=== PATIENT | male | born 1965 | race African-American/Black ===

== ENCOUNTER 2020-11-07 19:18 | Emergency (ER) | payer OTHER, SELFPAY ==
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
[2020-11-07 19:28] VITALS: BP 149/80; PULSE 86; RESP 16; TEMP 36.7; O2SAT 99; BMI 27.3
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
== END 2020-11-07 22:21 | disposition home or self-care (01) ==
PROVIDERS: Emergency Provider Emergency Medicine
DX: S20.219A Contusion of unspecified front wall of thorax, initial encounter (principal); S29.012A Strain of muscle and tendon of back wall of thorax, initial encounter; V59.40XA Driver of pick-up truck or van injured in collision with unspecified motor vehicles in traffic accident, initial encounter; Y93.9 Activity, unspecified; Y92.410 Unspecified street and highway as the place of occurrence of the external cause; Y99.9 Unspecified external cause status
CPT/HCPCS: 71046; 99283; 99284

== ENCOUNTER 2021-09-09 08:56 | Emergency (ER) | payer OTHER, SELFPAY ==
--- NOTE | ~2021-09-09 | XR_ITS ---
EXAMINATION: XR KNEE, LEFT CLINICAL INFORMATION: Pain COMPARISON: None TECHNIQUE: Four views of the left knee. FINDINGS: Bone alignment is normal. No fracture or dislocation is seen. The femoral tibial joints are normal. There are small osteophytes at the patellofemoral joint. There is no joint effusion. XR/XR knee LT 4V IMPRESSION: Small osteophytes at the patellofemoral joint.
[2021-09-09 08:59] VITALS: BP 151/77; PULSE 104; RESP 18; TEMP 35.9; O2SAT 99; BMI 27.3
[2021-09-09 09:55] LABS: Glucose, Whole Blood 287 mg/dL (60-115)
[2021-09-09 10:15] LABS: MANUAL DIFF FLAG NO
[2021-09-09 10:17] LABS: Basophils Percent Auto 0.6 % (0-2); Eosinophils Absolute Auto 0.1 X10*3/uL (0.0-0.4); Eosinophils Percent Auto 2.2 % (0-4); Hematocrit 42.4 % (42.0-52.0); Hemoglobin 14.9 g/dl (14.0-18.0); Imm Gran Abs Auto 0.04 X10*3/uL (0.00-0.03); Imm Gran Pct Auto 0.7 % (0.0-0.4); Lymphocytes Absolute Auto 1.7 X10*3/uL (1.2-4.9); Mean Corpuscular HGB Conc 35.1 g/dl (31.0-36.0); Mean Corpuscular Hemoglobin 29.1 pg (27.0-33.0); Mean Corpuscular Volume 82.8 fL (80.0-98.0); Monocytes Absolute Auto 0.4 X10*3/uL (0.1-1.2); Monocytes Percent Auto 7.2 % (2-11); Neutrophils Absolute Auto 3.1 x10*3/uL (2.0-8.3); Neutrophils Percent Auto 58.3 % (45-73); Platelet Count 209 X10*3/uL (160-400); Red Blood Count 5.12 X10*6/uL (4.60-5.80); Red Cell Distribution Width 12.9 % (11.0-16.0); White Blood Count 5.4 X10*3/uL (4.8-10.8)
[2021-09-09 10:26] LABS: Acetone, serum QL Negative (Negative)
[2021-09-09 10:30] LABS: Estimated Average Glucose 166 mg/dL; Hemoglobin A1c % 7.4 %
--- NOTE | 2021-09-09 10:34 | ED.EXTPRO ---
HPI - Extremity Problem General Chief complaint: Extremity Injury, Lower Stated complaint: leg discomfort Time Seen by Provider: 09/09/21 09:08 Source: patient and family Mode of arrival: ambulatory Limitations: no limitations History of Present Illness HPI Narrative: 56-year-old male with no significant past medical history who reports he was seen by a doctor 2 years ago and told that he had high blood sugar otherwise he does not recall any other medical history as he has not seen a primary care provider in a few years presenting to the ED with his at bedside with complaints of atraumatic left knee pain for the past 2 years. Denies any recent falls or injuries. Denies any dizziness, headaches, neck pain/stiffness, trouble swallowing or breathing, chest pain or shortness of breath, dyspnea on exertion, orthopnea, palpitations, paresthesias, nausea/vomiting/diarrhea or constipation, black or bloody stools, dysuria, hematuria, urinary urgency/frequency, rashes, recent travel or sick contacts, recent immobilization, lower extremity edema or calf tenderness or any other symptoms complaints or concerns at this time. MD Complaint: joint pain Onset (ago): year(s) (2) Pain Consistency: constant Location: left and knee Quality: aching and constant Radiation: none Relieving factors: nothing Exacerbating factors: range of motion, weight bearing, walking and palpation Associated symptoms: denies other symptoms Related Data Previous Rx's Medication Instructions Recorded cyclobenzaprine 5 mg tablet 5 mg PO BEDTIME PRN 14 Days tab 11/07/20 ibuprofen 800 mg tablet 800 mg PO Q8H PRN #30 tab 11/07/20 lidocaine 4 % topical patch 1 patch TOPICAL Q24H PRN #15 ea 11/07/20 alcohol swabs (Alcohol Pads) 1 pad TOPICAL BID-QID PRN #200 ea 09/09/21 blood sugar diagnostic (FreeStyle #100 ea 09/09/21 Lite Strips) blood-glucose meter (FreeStyle #1 ea 09/09/21 [place] Lite) lancets 28 gauge (FreeStyle #100 ea 09/09/21 Lancets) metformin 500 mg tablet 500 mg PO BIDWMEAL #60 tab 09/09/21 Allergies Allergy/AdvReac Type Severity Reaction Status Date / Time No Known Allergies Allergy Verified 09/09/21 08:59 [No Known Allergies*] Review of Systems Review of Systems: Constitutional : No Weight loss, No Fever, No Chills, No Night Sweats, No Fatigue, No Malaise ENT/Mouth : No Hearing loss, No Ear Pain, No Nasal Congestion, No Sinus Pain, No Hoarseness, No sore throat, No Rhinorrhea, No Swallowing Difficulty Eyes: No Eye Pain, No Swelling, No Redness, No Foreign Body, No Discharge, No Vision Changes Cardiovascular : No Chest Pain, No SOB, No Dyspnea on Exertion, No Orthopnea, No Edema, No Palpitations Respiratory : No Cough, No Sputum, No Wheezing, No Smoke Exposure, No Dyspnea Gastrointestinal : No Nausea, No Vomiting, No Diarrhea, No Constipation, No abdominal Pain, No Hematochezia, No Melena Genitourinary : no irregular bleeding, No Dysuria, No Urinary Frequency, No Hematuria, No Urinary Incontinence, No Urgency, No Flank Pain, No Urinary Flow Changes, No Hesitancy Musculoskeletal : + joint pain, No Myalgias, No Joint Swelling Skin : No Skin Lesions, No rash Neuro : No Weakness, No Numbness, No Paresthesias, No Loss of Consciousness, No Dizziness, No Headache Psych : No Anxiety/Panic, No Depression, No SI/HI/AH/VH, No Social Issues, Heme/Lymph: No Bruising, No Bleeding,No Lymphadenopathy Endocrine : No Polyuria, No Polydipsia, No Temperature Intolerance Yes all other systems are reviewed and are negative [facility] Past Medical History Attestation statement: The following information was validated with the patient. Medical History No known health problems Social History Social History Advance Directives: No Advance Directives Information Provided: No Physical Exam Vital Signs: Vital Signs: Last Vital Signs Temp 96.6 F L 09/09/21 08:59 Pulse 104 H 09/09/21 08:59 Resp 18 09/09/21 08:59 BP 151/77 H 09/09/21 08:59 Pulse Ox 99 09/09/21 08:59 BMI result Body Mass Index 27.3 vital signs have been reviewed as normal and appeared to be correct. Blood pressure 151/77 Heart rate 104. Respiration rate normal. Temperature normal. Oxygen saturation normal. Appearance: Alert. Oriented X3. No acute distress. Head: Normal external exam. Normocephalic. Atraumatic. Eyes: PERRLA. EOMI. Conjunctiva and sclera normal. Eyelids normal. ENT: Pharynx normal. Uvula midline. Moist mucous membranes. Neck: Normal inspection. Neck supple. FROM. CVS: Normal heart rate and rhythm. Respiratory: No respiratory distress. Painless inspiration. Skin: Skin warm and dry. Normal skin color. Normal skin turgor. No rashes/lesions/lacerations noted. Extremities: Patient with tenderness palpation to the anterior lateral aspect of the left knee he has full range of motion no obvious ligamentous or tendon injury noted. No obvious soft tissue swelling noted. No signs of infection. Not consistent with septic joint. No lower extremity edema or calf tenderness noted. Otherwise all other extremities exhibit normal range of motion nontender. Neuro: Oriented X 3. No motor deficit. No sensory deficit. Reflexes normal. Normal steady gait. No focal neuro deficits noted. Vascular: + radial pulses/+ 2 distal pedal pulses/+2 dorsalis pedis b/l. Normal cap refill. No cyanosis noted to upper extremity nails and lower extremity toes nails. Course Course Course Narrative: 56-year-old male with no significant past medical history who reports he was seen by a doctor 2 years ago and told that he had high blood sugar otherwise he does not recall any other medical history as he has not seen a primary care provider in a few years presenting to the ED with his at bedside with complaints of atraumatic left knee pain for the past 2 years. Denies any recent falls or injuries. Denies any dizziness, headaches, neck pain/stiffness, trouble swallowing or breathing, chest pain or shortness of breath, dyspnea on exertion, orthopnea, palpitations, paresthesias, nausea/vomiting/diarrhea or constipation, black or bloody stools, dysuria, hematuria, urinary urgency/frequency, rashes, recent travel or sick contacts, recent immobilization, lower extremity edema or calf tenderness or any other symptoms complaints or concerns at this time. X-ray of left knee negative for any acute processes only revealed chronic changes such/osteophytes. He does not have any lower extremity edema or calf tenderness therefore not consistent with DVT therefore no ultrasound indicated at this time. We did do labs due to patient reporting he had high blood sugar 2 years ago and has not seen a doctor in years. His POC was 287. Therefore we got labs CBC is within normal limits. BUN 22. Random glucose 367. Negative acetone level. Although we did do an A1c level which is 7.4. Otherwise all other labs are within normal limits. Therefore patient is a new diagnosis diabetic I discussed this case with with Dr. Hinton and she is agreeable to my plan will teach patient had a check his blood sugar and DC home with metformin 500 mg b.i.d. it and I explained to him that he needs to call primary care provider starting today I gave him a few numbers along with endocrinology and to return if any new or worsening symptoms and to discuss to them about possible high blood pressure as well this is the 1st reading that we have had that is high therefore I will not start him on high blood pressure medications due to this is the 1st reading we have that is high. Patient understands agrees with this plan. MDM - Extremity (Nontraumatic) Medical Records Attestation: I reviewed the patient's medical records. Lab Data Attestation: I reviewed the patient's lab results. Result diagrams: 09/09/21 10:11 09/09/21 10:11 Labs: Lab Results 09/09/21 09/09/21 09/09/21 Range/Units 09:51 10:11 10:11 WBC 5.4 (4.8-10.8) X10*3/uL RBC 5.12 (4.60-5.80) X10*6/uL Hgb 14.9 (14.0-18.0) g/dl Hct 42.4 (42.0-52.0) % MCV 82.8 (80.0-98.0) fL MCH 29.1 (27.0-33.0) pg MCHC 35.1 (31.0-36.0) g/dl RDW 12.9 (11.0-16.0) % Plt Count 209 (160-400) X10*3/uL MPV 10.0 (9.4-12.4) fL Immature Gran % (Auto) 0.7 H (0.0-0.4) % Neut % (Auto) 58.3 (45-73) % Lymph % (Auto) 31.0 (20-40) % Stark % (Auto) 7.2 (2-11) % Eos % (Auto) 2.2 (0-4) % Baso % (Auto) 0.6 (0-2) % Lymph # (Auto) 1.7 (1.2-4.9) X10*3/uL Stark # (Auto) 0.4 (0.1-1.2) X10*3/uL Eos # (Auto) 0.1 (0.0-0.4) X10*3/uL Baso # (Auto) 0.0 (0.0-0.2) X10*3/uL Abs Immat Gran (auto) 0.04 H (0.00-0.03) X10*3/uL Absolute Neuts (auto) 3.1 (2.0-8.3) x10*3/uL Absolute Nucleated RBC 0.000 (0.0-0.012) X10*3/uL Nucleated RBC % (auto) 0.0 (0.0-0.2) /100WBC Sodium 137 (135-145) mmol/L Potassium 4.5 (3.3-5.1) mmol/L Chloride 104 (96-108) mmol/L Carbon Dioxide 25 (22-29) mmol/L Anion Gap 13 (12-20) BUN 22 H (9-16) mg/dL Creatinine 1.08 (0.5-1.4) mg/dL Estim Creat Clear Calc 70.2 Estimated GFR > 60 POC Glucose 287 H (60-115) mg/dL Random Glucose 367 H* (60-115) mg/dL Estimat Average Glucose mg/dL Hemoglobin A1c % % Calcium 9.4 (8.4-10.2) mg/dL Total Bilirubin 0.6 (0.0-1.0) mg/dL AST 15 (5-37) U/L ALT 15 (0-40) U/L Alkaline Phosphatase 93 (39-117) U/L Total Protein 6.9 (6.5-8.0) g/dL Albumin 4.1 (3.5-5.0) g/dL Acetone, Qual (Negative) 09/09/21 09/09/21 Range/Units 10:11 10:11 WBC (4.8-10.8) X10*3/uL RBC (4.60-5.80) X10*6/uL Hgb (14.0-18.0) g/dl Hct (42.0-52.0) % MCV (80.0-98.0) fL MCH (27.0-33.0) pg MCHC (31.0-36.0) g/dl RDW (11.0-16.0) % Plt Count (160-400) X10*3/uL MPV (9.4-12.4) fL Immature Gran % (Auto) (0.0-0.4) % Neut % (Auto) (45-73) % Lymph % (Auto) (20-40) % Stark % (Auto) (2-11) % Eos % (Auto) (0-4) % Baso % (Auto) (0-2) % Lymph # (Auto) (1.2-4.9) X10*3/uL Stark # (Auto) (0.1-1.2) X10*3/uL Eos # (Auto) (0.0-0.4) X10*3/uL Baso # (Auto) (0.0-0.2) X10*3/uL Abs Immat Gran (auto) (0.00-0.03) X10*3/uL Absolute Neuts (auto) (2.0-8.3) x10*3/uL Absolute Nucleated RBC (0.0-0.012) X10*3/uL Nucleated RBC % (auto) (0.0-0.2) /100WBC Sodium (135-145) mmol/L Potassium (3.3-5.1) mmol/L Chloride (96-108) mmol/L Carbon Dioxide (22-29) mmol/L Anion Gap (12-20) BUN (9-16) mg/dL Creatinine (0.5-1.4) mg/dL Estim Creat Clear Calc Estimated GFR POC Glucose (60-115) mg/dL Random Glucose (60-115) mg/dL Estimat Average Glucose 166 mg/dL Hemoglobin A1c % 7.4 % Calcium (8.4-10.2) mg/dL Total Bilirubin (0.0-1.0) mg/dL AST (5-37) U/L ALT (0-40) U/L Alkaline Phosphatase (39-117) U/L Total Protein (6.5-8.0) g/dL Albumin (3.5-5.0) g/dL Acetone, Qual Negative (Negative) Critical Care Time Critical Care Time Critical Care Time: Yes Total Critical Care Time: 60 Attestation: I personally attest to this time spent taking care of the patient Discharge Plan Discharge Clinical Impression: Arthritis of left knee, Newly diagnosed diabetes, High blood pressure Patient Disposition: Home, Self-Care Instructions: Heart Healthy Diet (DC), Osteoarthritis (DC), How to Take a Blood Pressure (ED), Type 2 Diabetes in Adults: New Diagnosis (ED), Hypertension and Diabetes (ED), Diabetes and Nutrition (ED), How to Check your Blood Sugar (ED) Additional Instructions: You need to start calling for a new primary care provider as soon as possible along with the office support assistant to take care of her diabetes. You also need to start checking her blood sugar at least twice a day before meals. Take your metformin for diabetes twice a day. Also start checking her blood pressure at least 3 times a week in the morning and write it down on a piece of paper so when you follow-up with a primary care provider you have evidence that you do have high blood pressure. Return if any new or worsening symptoms. Prescriptions: New metformin 500 mg tablet 500 mg PO BIDWMEAL Qty: 60 1RF (DME) blood-glucose meter [FreeStyle [place] Lite] Kit See Rx Instructions .Route Qty: 1 0RF Rx Instructions: As directed (DME) FreeStyle Lite Strips Strip See Rx Instructions .Route Qty: 100 0RF Rx Instructions: As directed alcohol swabs [Alcohol Pads] Pads, Medicated 1 pad topical BID-QID PRN (Reason: New onset diabetes to check blood sugar) Qty: 200 0RF (DME) lancets [FreeStyle Lancets] 28 gauge misc See Rx Instructions .Route Qty: 100 0RF Rx Instructions: As directed No Action lidocaine 4 % adhesive patch,medicated 1 patch topical Q24H PRN (Reason: pain) Qty: 15 0RF Rx Instructions: may leave on for up to 12 hrs ibuprofen 800 mg tablet 800 mg PO Q8H PRN (Reason: pain) Qty: 30 0RF cyclobenzaprine 5 mg tablet 5 mg PO BEDTIME PRN (Reason: muscle spasm) 14 Days 0RF Referrals: [facility] [Provider Group] [facility] [Provider Group] [facility] [place] [facility] Group] [facility] [place] [facility] [place] Group] Allison uGnderson MD [Physician] - Print Language: Maltese
[2021-09-09 10:37] LABS: Alanine Aminotransferase 15 U/L (0-40); Albumin Level 4.1 g/dL (3.5-5.0); Alkaline Phosphatase 93 U/L (39-117); Anion Gap 13 (12-20); Aspartate Amino Transferase 15 U/L (5-37); Bilirubin Total 0.6 mg/dL (0.0-1.0); Blood Urea Nitrogen 22 mg/dL (9-16); Calcium 9.4 mg/dL (8.4-10.2); Carbon Dioxide 25 mmol/L (22-29); Chloride 104 mmol/L (96-108); Creatinine Clr Calc Pharmacy 70.2; Estimated Glomerular Filt Rate > 60; Glucose Random 367 mg/dL (60-115); Potassium 4.5 mmol/L (3.3-5.1); Sodium 137 mmol/L (135-145); Total Protein 6.9 g/dL (6.5-8.0)
--- NOTE | 2021-09-09 11:40 | MHC.CM.ED ---
Received case management consult from Felisha MARLEY. Patient came to ER due to leg discomfort. Patient found to be new diabetic. Patient doesn't have a PCP. Met with patient and . Patient has [facility] Direct and has been having difficulty finding a PCP. T/W informed patient and that Dr Baig's office is only provider in the area that accepts patient's insurance. Patient was told to call insurance company to change PCP to Dr Baig today. And then call Dr Baig's office tomorrow to arrange a new patient appointment. Patient and verbalize understanding. Felisha MARLEY aware. Continue to monitor for d/c needs.
[2021-09-09] MEDS: metFORMIN HCl 500 MG TABLET PO (11:47)
== END 2021-09-09 12:15 | disposition home or self-care (01) ==
PROVIDERS: Physician Assistant Medical; Emergency Provider Emergency Medicine
DX: M17.12 Unilateral primary osteoarthritis, left knee (principal); M79.605 Pain in left leg; E11.65 Type 2 diabetes mellitus with hyperglycemia; R03.0 Elevated blood-pressure reading, without diagnosis of hypertension
CPT/HCPCS: 36415; 73564; 80053; 82009; 82947; 83036; 85025; 99283

== ENCOUNTER 2022-05-31 08:05 | Emergency (ER) | payer MEDICAID, SELFPAY ==
--- NOTE | ~2022-05-31 | XR_ITS ---
EXAMINATION: XR LUMBOSACRAL SPINE CLINICAL INFORMATION: Back pain COMPARISON: None TECHNIQUE: Three views of the lumbosacral spine. FINDINGS: No acute findings. No fracture or subluxation of the degenerated spine. The vertebral body heights and alignment are maintained. The disc spaces are generally well-preserved. There is multilevel osteophyte formation of the visualized lower thoracic and lumbar spine. No focal lytic or osteoblastic lesion. Sacrum and sacroiliac joints are intact. XR/XR lumbar spine 2-3V IMPRESSION: 1. No fracture or malalignment. 2. Mild degeneration/spondylosis of the visualized lower thoracic and lumbar spine.
--- NOTE | ~2022-05-31 | US_ITS ---
EXAMINATION: US RETROPERITONEAL LIMITED (AORTA) CLINICAL INFORMATION: Low back pain. Evaluate for abdominal aorta aneurysm.. COMPARISON: None TECHNIQUE: Bond-scale, color Doppler and spectral Doppler evaluation of the abdominal aorta. FINDINGS: Abdominal aorta is normal in size. Peak systolic velocity measured in the distal aorta is 90 cm/sec. The measurements of the aorta in maximum AP and transverse dimensions respectively are as follows: Proximal: 2.2 x 1.6 cm. Mid: 1.8 x 1.5 cm. Distal: 1.4 x 1.7 cm. The common iliac arteries are normal in size. The right common iliac is 0.9 cm and left common iliac 0.8 cm. US/US abdominal aortic aneurysm IMPRESSION: Normal exam. No evidence of abdominal aorta aneurysm.
[2022-05-31 08:06] VITALS: BP 148/81; PULSE 98; RESP 18; TEMP 36.4; O2SAT 97; BMI 27.3
--- NOTE | 2022-05-31 08:51 | ED.GENADULT ---
HPI - General Adult General Chief complaint: General Medical Stated complaint: fall low back pain Time Seen by Provider: 05/31/22 08:41 Source: patient and family Mode of arrival: ambulatory Limitations: no limitations History of Present Illness HPI narrative: 57-year-old male came in for evaluation of low back pain that started about 30 days ago patient states he was sleeping in a cold room and window was broken cold air was hitting his low back area. Pain is affecting mostly the whole back mostly on the right side pain was worse with movement specifically bending up and down. Patient declined any abdominal or epigastric pain, no fall or trauma to the back. Patient was diagnosed with diabetes was prescribed a medication from the ED patient is unable to get to a primary physician because the insurance. Related Data Home Medications Medication Instructions Recorded Confirmed No Known Home Meds 05/31/22 05/31/22 Allergies Allergy/AdvReac Type Severity Reaction Status Date / Time No Known Allergies Allergy Verified 09/09/21 08:59 [No Known Allergies*] Review of Systems Review of Systems: All other systems are reviewed and are negative Constitutional: Reports as per HPI and Reports no additional constitutional complaints Eyes: Reports as per HPI and Reports no additional eye complaints Reports system reviewed and no additional complaints, except as documented Cardiovascular: Reports as per HPI and Reports no additional cardiovascular complaints Respiratory: Reports as per HPI and Reports no additional respiratory complaints Gastrointestinal: Reports as per HPI and Reports no additional gastrointestinal complaints Genitourinary: Reports no additional female genitourinary complaints Musculoskeletal: Reports no additional musculoskeletal complaints Skin/Breast: Reports system reviewed and no additional complaints, except as docu Psychiatric: Reports no additional psychiatric complaints Endocrine: Reports no additional endocrine complaints Hematologic/Lymphatic: Reports no additional hematologic/lymphatic complaints Allergic/Immunologic: Reports no additional allergic/immunologic complaints Reports system reviewed and no additional complaints, except as documented and Reports Abnormal speech present [facility] Past Medical History Medical History (Updated 05/31/22 @ 14:55 by Elza Claudio MD) Diabetes Social History Social History Alcohol intake: current Alcohol intake frequency: holidays/special occasions only Alcohol type: beer Smoked in Last 30 Days: No Use of substances other than those prescribed or required for medical reasons: No Advance Directives: No Physical Exam ED Vital Signs: Vital Signs - 24 hr 05/31/22 08:06 05/31/22 09:11 05/31/22 12:36 Temperature 97.6 F 97.7 F 97.7 F Pulse Rate 98 94 80 Respiratory Rate 18 18 18 Blood Pressure 148/81 H 145/82 H 136/82 Pulse Oximetry 97 97 100 Oxygen Delivery Method Room Air Room Air Room Air BMI result Body Mass Index 27.3 Vital signs have been reviewed as appeared to be correct. Blood pressure normal. Heart rate normal. Respiration rate normal. Temperature normal. Oxygen saturation normal. Appearance: Alert. Oriented X3. No acute distress. Head: Normal external exam. Normocephalic. Atraumatic. No Barahona signs noted. No raccoon eyes noted Eyes: PERRLA. EOMI. Conjunctiva and sclera normal. Eyelids normal. ENT: TM's Normal. Pharynx normal. Uvula midline. Moist mucous membranes. No trismus noted. No drooling noted. No muffled voice noted. Neck: Normal inspection. Neck supple. FROM. No adenopathy. Thyroid Normal. No meningeal signs. No neck mass noted. CVS: Normal heart rate and rhythm. Heart sound normal. No murmurs noted. Pulses normal throughout. Respiratory: No respiratory distress. Painless inspiration. Breath sounds normal. No wheezes/rales/rhonchi noted. Chest nontender. No accessory muscle usage noted or decreased air movement noted. Abdomen: Soft and nontender. Bowel sounds normal in all 4 quadrants. No distention noted. No organomegaly noted. No visible injury noted. Back: No CVA tenderness. Full range of motion noted. Skin: Skin warm and dry. Normal skin color. Normal skin turgor. No rashes/lesions/lacerations noted. Extremities: No lower extremity edema. Extremities exhibit normal range of motion. Extremities nontender. Neuro: Oriented X 3. Cranial nerve exam: II-XII are grossly intact No motor deficit. No sensory deficit. Reflexes normal. Course Course Course Narrative: 57-year-old male diagnosed with diabetes patient is not compliant with his medication that was prescribed in the emergency department, patient is unable to find PCP because the type of insurance that the patient has, patient needed an education and teaching about how to manage diabetes [employer] grade social [employer] teacher consultation was ordered to help the patient to find a PCP and possibly VNA. Patient was given insulin to control his hyperglycemia the patient started to become hypoglycemic had palpitation and his blood sugar then was 49 patient was awake enough to take p.o. intake blood sugar went up to 123, still waiting to arrange for VNA. Reevaluation(s) Reevaluation #1: Patient is awake, alert, oriented x3 patient is angry that he has been waiting for long time in the emergency department waiting for [employer] grade social studies teacher and VNA patient took out his IV and walking out of the emergency department patient refused to have further conversation with me trying to educate him about diabetes and the reason of waiting in the emergency department patient walked out of the emergency department. Time: 14:50 Medications Administered Discontinued Medications Generic Name Dose Route Start Last Admin Trade Name Freq PRN Reason Stop Dose Admin Glyburide 5 mg 05/31/22 13:18 05/31/22 14:18 Glyburide 5 Mg Tablet PO 05/31/22 13:19 Not Given ONCE ONE Sodium Chloride 1,000 mls @ 999 mls/hr 05/31/22 10:05 05/31/22 14:00 Ns IV 05/31/22 11:05 Infused .Q1H1M ONE Infusion Ibuprofen 600 mg 05/31/22 08:49 05/31/22 09:07 Ibuprofen 600 Mg Tablet PO 05/31/22 08:50 600 mg ONCE ONE Administration Insulin Human Regular 10 unit 05/31/22 10:05 05/31/22 10:55 Insulin Regular, Human 100 Unit/Ml 3 Ml Vial IVPUSH 05/31/22 10:06 10 unit ONCE ONE Administration Metformin HCl 500 mg 05/31/22 13:18 05/31/22 14:18 Metformin Hcl 500 Mg Tablet PO 05/31/22 13:19 Not Given ONCE ONE Medical Decision Making Differential Diagnosis Differential Diagnoses: The differential diagnosis associated with the presentation includes (Uncontrolled diabetes, back pain, UTI, kidney stone.) Lab Data MDM Lab Attestation statement: I reviewed the patient's lab results. 05/31/22 09:04 05/31/22 09:04 Labs: Lab Results 05/31/22 05/31/22 05/31/22 Range/Units 09:04 09:04 11:59 WBC 3.9 L (4.8-10.8) X10*3/uL RBC 4.99 (4.60-5.80) X10*6/uL Hgb 14.4 (14.0-18.0) g/dl Hct 41.7 L (42.0-52.0) % MCV 83.6 (80.0-98.0) fL MCH 28.9 (27.0-33.0) pg MCHC 34.5 (31.0-36.0) g/dl RDW 12.4 (11.0-16.0) % Plt Count 186 (160-400) X10*3/uL MPV 10.2 (9.4-12.4) fL Immature Gran % (Auto) 1.0 H (0.0-0.4) % Neut % (Auto) 58.0 (45-73) % Lymph % (Auto) 30.8 (20-40) % Starr % (Auto) 7.4 (2-11) % Eos % (Auto) 2.0 (0-4) % Baso % (Auto) 0.8 (0-2) % Lymph # (Auto) 1.2 (1.2-4.9) X10*3/uL Starr # (Auto) 0.3 (0.1-1.2) X10*3/uL Eos # (Auto) 0.1 (0.0-0.4) X10*3/uL Baso # (Auto) 0.0 (0.0-0.2) X10*3/uL Abs Immat Gran (auto) 0.04 H (0.00-0.03) X10*3/uL Absolute Neuts (auto) 2.3 (2.0-8.3) x10*3/uL Absolute Nucleated RBC 0.000 (0.0-0.012) X10*3/uL Nucleated RBC % (auto) 0.0 (0.0-0.2) /100WBC Sodium 137 (135-145) mmol/L Potassium 4.0 (3.3-5.1) mmol/L Chloride 104 (96-108) mmol/L Carbon Dioxide 24 (22-29) mmol/L Anion Gap 13 (12-20) BUN 18 H (9-16) mg/dL Creatinine 1.06 (0.5-1.4) mg/dL Estim Creat Clear Calc 70.7 Estimated GFR > 60 POC Glucose (60-115) mg/dL Random Glucose 428 H* (60-115) mg/dL Calcium 9.0 (8.4-10.2) mg/dL Urine Color Yellow Urine Appearance Clear Urine pH 5.5 (5.0-9.0) Ur Specific [place] >= 1.030 H (1.005-1.025) Urine Protein Negative (Neg-Trace) mg/dL Urine Glucose (UA) >=1000 H (Negative) mg/dL Urine Ketones Trace (Negative) mg/dL Urine Blood Negative (Negative) Urine Nitrite Negative (Negative) Ur Leukocyte Esterase Negative (Negative) Urine RBC 0-2 (0-2) /HPF Urine WBC 0-5 (0-5) /HPF Ur Squamous Epith Cells 0-2 (0-2) /HPF Urine Bacteria None Seen (None Seen) Hyaline Casts 0-2 (0-2) /LPF 05/31/22 05/31/22 05/31/22 Range/Units 12:01 13:24 13:58 WBC (4.8-10.8) X10*3/uL RBC (4.60-5.80) X10*6/uL Hgb (14.0-18.0) g/dl Hct (42.0-52.0) % MCV (80.0-98.0) fL MCH (27.0-33.0) pg MCHC (31.0-36.0) g/dl RDW (11.0-16.0) % Plt Count (160-400) X10*3/uL MPV (9.4-12.4) fL Immature Gran % (Auto) (0.0-0.4) % Neut % (Auto) (45-73) % Lymph % (Auto) (20-40) % Starr % (Auto) (2-11) % Eos % (Auto) (0-4) % Baso % (Auto) (0-2) % Lymph # (Auto) (1.2-4.9) X10*3/uL Starr # (Auto) (0.1-1.2) X10*3/uL Eos # (Auto) (0.0-0.4) X10*3/uL Baso # (Auto) (0.0-0.2) X10*3/uL Abs Immat Gran (auto) (0.00-0.03) X10*3/uL Absolute Neuts (auto) (2.0-8.3) x10*3/uL Absolute Nucleated RBC (0.0-0.012) X10*3/uL Nucleated RBC % (auto) (0.0-0.2) /100WBC Sodium (135-145) mmol/L Potassium (3.3-5.1) mmol/L Chloride (96-108) mmol/L Carbon Dioxide (22-29) mmol/L Anion Gap (12-20) BUN (9-16) mg/dL Creatinine (0.5-1.4) mg/dL Estim Creat Clear Calc Estimated GFR POC Glucose 205 H 49 L* 123 H (60-115) mg/dL Random Glucose (60-115) mg/dL Calcium (8.4-10.2) mg/dL Urine Color Urine Appearance Urine pH (5.0-9.0) Ur Specific [place] (1.005-1.025) Urine Protein (Neg-Trace) mg/dL Urine Glucose (UA) (Negative) mg/dL Urine Ketones (Negative) mg/dL Urine Blood (Negative) Urine Nitrite (Negative) Ur Leukocyte Esterase (Negative) Urine RBC (0-2) /HPF Urine WBC (0-5) /HPF Ur Squamous Epith Cells (0-2) /HPF Urine Bacteria (None Seen) Hyaline Casts (0-2) /LPF Independent Interpretation I performed an independent interpretation of an: Plain X-Ray (Lumbar spine: No acute fracture or malalignment.) and Ultrasound (Of the abdomen: No AAA.) Radiology Impression Discussion of test interpretation with radiology: I have reviewed the radiologist's reading. Tests considered The following testing was considered but not selected: Take the patient until seen by [employer] grade social studies teacher and arrange for VNA and also receive educational instruction about diabetes management. Patient did not want to wait and eloped before complete evaluation. Discharge Plan Discharge Clinical Impression: Hyperglycemia, Back pain Patient Disposition: Elopement Prescriptions: No Action No Known Home Meds
[2022-05-31 09:07] LABS: MANUAL DIFF FLAG NO
[2022-05-31] MEDS: Ibuprofen 600 MG TABLET PO (09:07)
[2022-05-31 09:11] VITALS: BP 145/82; PULSE 94; RESP 18; TEMP 36.5; O2SAT 97
[2022-05-31 09:23] LABS: Basophils Percent Auto 0.8 % (0-2); Eosinophils Absolute Auto 0.1 X10*3/uL (0.0-0.4); Hematocrit 41.7 % (42.0-52.0); Hemoglobin 14.4 g/dl (14.0-18.0); Imm Gran Abs Auto 0.04 X10*3/uL (0.00-0.03); Lymphocytes Absolute Auto 1.2 X10*3/uL (1.2-4.9); Lymphocytes Percent Auto 30.8 % (20-40); Mean Corpuscular HGB Conc 34.5 g/dl (31.0-36.0); Mean Corpuscular Hemoglobin 28.9 pg (27.0-33.0); Mean Corpuscular Volume 83.6 fL (80.0-98.0); Mean Platelet Volume 10.2 fL (9.4-12.4); Monocytes Absolute Auto 0.3 X10*3/uL (0.1-1.2); Monocytes Percent Auto 7.4 % (2-11); Neutrophils Absolute Auto 2.3 x10*3/uL (2.0-8.3); Platelet Count 186 X10*3/uL (160-400); Red Blood Count 4.99 X10*6/uL (4.60-5.80); Red Cell Distribution Width 12.4 % (11.0-16.0); White Blood Count 3.9 X10*3/uL (4.8-10.8)
[2022-05-31 09:31] LABS: Anion Gap 13 (12-20); Blood Urea Nitrogen 18 mg/dL (9-16); Carbon Dioxide 24 mmol/L (22-29); Chloride 104 mmol/L (96-108); Creatinine Clr Calc Pharmacy 70.7; Estimated Glomerular Filt Rate > 60; Glucose Random 428 mg/dL (60-115); Sodium 137 mmol/L (135-145)
--- NOTE | 2022-05-31 09:40 | PC.NURSE ---
CRITICAL GLUCOSE 428. PRIMARY RN AWARE, DR. CAMPOS AWARE.
[2022-05-31] MEDS: 0.9 % Sodium Chloride 1,000 ML 999 ML IV (10:55)
[2022-05-31] MEDS: Insulin Regular, Human 100 UNIT/ML 3 ML VIAL 10 UNIT IVPUSH (10:55)
--- NOTE | 2022-05-31 10:57 | PC.NURSE ---
patient a&ox3, iv inserted, pt ivf started per order, insulin given per order, call [place] within reach, will continue to monitor
[2022-05-31 12:11] LABS: Appearance Urine Clear; Color Urine Yellow; Glucose Urine UA >=1000 mg/dL (Negative); Leukocyte Esterase Urine Negative (Negative); Nitrite Urine Negative (Negative); PH 5.5 (5.0-9.0); Specific Gravity - Urine >= 1.030 (1.005-1.025); UMIC TRIGGER UACC YES; Urine Blood Negative (Negative); Urine Ketones Trace mg/dL (Negative); Urine Protein Negative (Neg-Trace)
[2022-05-31 12:18] LABS: Bacteria Urine None Seen (None Seen); Hyaline Casts Urine 0-2 /LPF (0-2); RBC Urine 0-2 /HPF (0-2); Squamous Epithelial Cell Urine 0-2 /HPF (0-2); WBC Urine 0-5 /HPF (0-5)
[2022-05-31 12:36] VITALS: BP 136/82; PULSE 80; RESP 18; TEMP 36.5; O2SAT 100
--- NOTE | 2022-05-31 12:37 | PC.NURSE ---
patient a&ox3, vss, pt ivf continue to run slowly, call [place] within reach, will continue to monitor
--- NOTE | 2022-05-31 12:43 | MHC.CM.PN ---
Received Consult from ER. Consult r/t [facility] DM management. requesting VNA. A referral has been sent to [facility] for home services. response pending.
[2022-05-31 12:57] LABS: Glucose, Whole Blood 205 mg/dL (60-115)
[2022-05-31 13:29] LABS: Glucose, Whole Blood 49 mg/dL (60-115)
--- NOTE | 2022-05-31 13:30 | PC.NURSE ---
pt c/o diaphoresis, and stated he felt tired, recheck of poc was 49, pt was given PO- chicken sandwich and orange juice. cardiac monitor technician applied, dr sousa notified will recheck poc.
--- NOTE | 2022-05-31 13:46 | PHA.MEDREC ---
Addendum entered by Jair Whitlock 05/31/22 13:47: Metformin 500mg bid per claim history was 10/08/21, no refills made afterwards. Original Note: Pharmacy Consult ? Medication Reconciliation Pharmacy has completed the medication reconciliation. Patient prescribed metformin 500mg bid, however states they take no medications and haven't taken anything for months.
--- NOTE | 2022-05-31 14:00 | PC.NURSE ---
patient a&ox3, recheck of poc was 123, pt angry/agitated ripping off tele monitor and bp cuff, pt stating hes cold and putting his clothes on including a jacket, this nurse stated to the patient that we could get him a warm blanket, the patient got increased angry and stated he was leaving. This nurse asked for the graduate nurse Fidelina to go get dr. claudio Patient stated to this nurse leave me alone I am going to hit you, I am going to hit you security at bedside, pts trying to calm the patient, this nurse explaining to the patient that he needs to have his IV removed for him to leave, pt wouldnt allow this nurse to take out the IV, and ripped it out himself. It was explained to the patient and that they needed education about diabetes as stated they did not have a PCP and she was unsure how to use the POC machine she had purchased previously. also had stated she and her do not follow a dm diet. Dr. Claudio attempted to get the patient to stay so we could assist in teaching and eating pt refused, also refused. pt then eloped.
[2022-05-31 14:12] LABS: Glucose, Whole Blood 123 mg/dL (60-115)
--- NOTE | 2022-06-01 08:37 | MHC.CM.ED ---
Patient left ER AMA. Patient also doesn't have a PCP. VNA services will not be able to be arranged due to this.
== END 2022-05-31 15:01 | disposition left against medical advice (07) ==
PROVIDERS: Emergency Provider Emergency Medicine
DX: M54.50 Low back pain, unspecified (principal); Z79.899 Other long term (current) drug therapy
CPT/HCPCS: 36415; 72100; 76706; 80048; 81001; 82947; 85025; 99284